=== PATIENT | male | born 1955 | race Caucasian/White ===

== ENCOUNTER → 2021-07-16 11:59 | Outpatient (BNVA) | payer MEDICARE, SELFPAY | PROVIDERS: PCP Nurse Practitioner; Visit Provider Nurse Practitioner | DX: E78.2 Mixed hyperlipidemia (principal); R63.4 Abnormal weight loss; J43.9 Emphysema, unspecified | CPT/HCPCS: 80053; 80061; 81000; 82607; 84443; 85025 ==

== ENCOUNTER → 2021-08-03 08:00 | Outpatient (BNVA) | payer MEDICARE, MEDICAID, SELFPAY | PROVIDERS: PCP Nurse Practitioner; Visit Provider Internal Medicine Pulmonary Disease | DX: J43.9 Emphysema, unspecified (principal); Z14.8 Genetic carrier of other disease; Z12.2 Encounter for screening for malignant neoplasm of respiratory organs; Z71.6 Tobacco abuse counseling; F17.210 Nicotine dependence, cigarettes, uncomplicated | CPT/HCPCS: 99204 ==

== ENCOUNTER 2021-08-24 13:45 | Outpatient (CLI) | payer MEDICARE, MEDICAID, SELFPAY ==
--- NOTE | 2021-08-24 15:00 | CT_ITS ---
WS: [id number] CT CHEST, ABDOMEN, AND PELVIS TECHNIQUE: Contrast-enhanced CT of the chest, abdomen, and pelvis with coronal and sagittal reformatt ed images. CLINICAL INFORMATION: J43.9 - Emphysema, unspecified COMPARISON: None. DLP: 1178.[address] scans at [facility] use at least one of these dose optimization techniques: automated e xposure control; mA and/or kV adjustment per patient size (includes targeted exams where dose is matc hed to clinical indication); or iterative reconstruction. CT CHEST: Advanced chronic emphysematous changes. No acute pulmonary infiltrates. No focal pneumonia or pleural fluid. A few calcified granulomas. A few tree-in-bud infiltrates in the super segment RIGHT lower lo be and RIGHT middle lobe likely chronic and inflammatory. Slightly ectatic ascending thoracic aorta measuring 3.7 CM. Normal aortic arch. Normal descending tho racic aorta. Proximal main pulmonary arteries are normal. No mediastinal or hilar lymphadenopathy. No axillary lymphadenopathy. CT ABDOMEN AND PELVIS: Diffuse fatty infiltration of the liver. Normal portal vein and splenic vein. Gallbladder is contract ed. Adrenal glands are normal. Normal renal parenchymal enhancement. No hydronephrosis. Small RIGHT r enal cyst. Normal spleen. Adrenal glands are normal. Normal renal parenchymal enhancement. No hydrone phrosis. Normal pancreas. Normal caliber abdominal aorta. Mild aortic calcification. Slightly promine nt enhancing calcified prostate measuring 5.4 CM. No periaortic or pelvic lymphadenopathy. No inguina l lymphadenopathy. CT/CT chest abd pel w con* IMPRESSION: 1. Advanced chronic emphysematous changes. No acute pulmonary infiltrates. 2. A few tree-in-bud infiltrates in the RIGHT middle lobe and super segment RI GHT lower lobe likely inflammatory. 3. Slightly ectatic ascending thoracic aorta measuring 3.7 CM. 4. No mediastinal or hilar lymphadenopathy. 5. Mild diffuse fatty infiltration of the liver. 6. Tiny RIGHT renal cyst. 7. Prominent prostate measuring 5.4 cm. Correlation PSA. 8. No other acute findings in the abdomen or pelvis.
[2021-08-24] MEDS: iohexol 300 mg/mL 50 mL Btl PO (15:41)
[2021-08-24] MEDS: iohexol 300 mg/mL 100 mL Btl IV (15:42)
== END 2021-08-24 13:46 | disposition home or self-care (01) ==
LOC: RAD 13:45
PROVIDERS: PCP Nurse Practitioner; Visit Provider Nurse Practitioner
DX: J43.9 Emphysema, unspecified (principal); R63.4 Abnormal weight loss; I77.810 Thoracic aortic ectasia; K76.0 Fatty (change of) liver, not elsewhere classified; N28.1 Cyst of kidney, acquired; N40.0 Benign prostatic hyperplasia without lower urinary tract symptoms
CPT/HCPCS: 71260; 74177